=== PATIENT | female | born 1985 | race Caucasian/White ===

== ENCOUNTER 2020-06-21 04:10 | Inpatient (IN) | payer OTHER, SELFPAY ==
[~2020-06-21] VITALS: Ht 154.9 cm; Wt 90.7 kg
[2020-06-21] MEDS ORDERED: LR 1,000 ML IV SCH ×2 (04:30→05:00)
[2020-06-21] MEDS ORDERED: OXYTOCIN/0.9 % SODIUM CHLORIDE 1,000 ML IV SCH ×3 (04:30→14:15)
[2020-06-21] MEDS ORDERED: NALBUPHINE HCL 10 MG/ML AMP IM PRN (04:30)
[2020-06-21] MEDS ORDERED: AMPICILLIN SODIUM 2 GM in NS 100 ML IV ONE (04:30)
[2020-06-21 04:38] VITALS: BP_SYST 118
[2020-06-21] MEDS ORDERED: OXYTOCIN/0.9 % SODIUM CHLORIDE 1,000 ML IV ONE (04:45)
[2020-06-21] MEDS ORDERED: AMPICILLIN SODIUM 2 GM VIAL ONE (04:48)
[2020-06-21] MEDS ORDERED: LR 1,000 ML IV ONE ×2 (05:00)
[2020-06-21 05:36] LABS: BASOPHILS % (AUTO) 0.5 % (0.0-2.0); EOSINOPHILS # (AUTO) 0.1 K/uL (0.0-0.4); EOSINOPHILS % (AUTO) 0.7 % (0.0-4.0); HEMATOCRIT 28.3 % (36-48); HEMOGLOBIN 9.1 g/dL (12.0-16.0); LYMPHOCYTES # (AUTO) 2.2 K/uL (1.0-5.5); LYMPHOCYTES % (AUTO) 19.8 % (20.5-51.5); MEAN CORPUSCULAR HEMOGLOBIN 23 pg (27-31); MEAN CORPUSCULAR HGB CONC 32 % (32-36); MEAN CORPUSCULAR VOLUME 72 fL (79.0-98.0); MONOCYTES # (AUTO) 0.7 K/uL (0.0-1.0); MONOCYTES % (AUTO) 6.4 % (1.7-9.3); NEUTROPHILS # (AUTO) 7.9 K/uL (1.8-7.7); NEUTROPHILS % (AUTO) 72.6 % (40.0-70.0); PLATELET COUNT (AUTO) 268 K/uL (130-430); RED BLOOD CELL COUNT(AUTO) 3.91 MIL/uL (4.2-6.2); RED CELL DISTRIBUTION WIDTH 15.4 % (9.0-15.0); WHITE BLOOD COUNT (AUTO) 10.9 K/uL (4.8-10.8)
[2020-06-21] MEDS ORDERED: OXYCODONE/ACETAMINOPHEN 5-325 TABLET PO PRN (07:45)
[2020-06-21] MEDS ORDERED: HYDROcodone/ACETAMIN 5-325 MG TAB (NORCO/ VICODIN) PO PRN (07:45)
[2020-06-21] MEDS ORDERED: AMPICILLIN SODIUM 1 GM VIAL ONE (07:51)
[2020-06-21] MEDS ORDERED: OXYTOCIN 10 UNIT/ML VIAL ONE (08:06)
[2020-06-21] MEDS ORDERED: OXYTOCIN 10 UNIT/ML VIAL IM ONE (08:15)
[2020-06-21] MEDS ORDERED: AMPICILLIN SODIUM 1 GM in NS 50 ML IV SCH (08:30)
[2020-06-21] MEDS ORDERED: WITCH HAZEL LEAF 1 MED.PAD MED.PAD TP ONE (10:58)
[2020-06-21] MEDS: IBUPROFEN 600 MG TABLET PO SCH ×2 (12:03→18:10)
[2020-06-21] MEDS ORDERED: SENNOSIDES/DOCUSATE SODIUM 1 TAB TABLET(SENOKOT-S) PO PRN (14:15)
[2020-06-21] MEDS ORDERED: DOCUSATE SODIUM 100 MG CAPSULE PO PRN (14:15)
[2020-06-21] MEDS ORDERED: LANOLIN 7 GM OINT. TP PRN (14:15)
[2020-06-22] MEDS: IBUPROFEN 600 MG TABLET PO SCH ×3 (00:11→12:05)
[2020-06-22 07:10] LABS: BASOPHILS % (AUTO) 0.4 % (0.0-2.0); EOSINOPHILS # (AUTO) 0.1 K/uL (0.0-0.4); EOSINOPHILS % (AUTO) 1.3 % (0.0-4.0); HEMATOCRIT 24.3 % (36-48); HEMOGLOBIN 7.9 g/dL (12.0-16.0); LYMPHOCYTES # (AUTO) 2.4 K/uL (1.0-5.5); LYMPHOCYTES % (AUTO) 23.4 % (20.5-51.5); MEAN CORPUSCULAR HEMOGLOBIN 24 pg (27-31); MEAN CORPUSCULAR HGB CONC 33 % (32-36); MEAN CORPUSCULAR VOLUME 73 fL (79.0-98.0); MONOCYTES # (AUTO) 0.6 K/uL (0.0-1.0); MONOCYTES % (AUTO) 5.5 % (1.7-9.3); PLATELET COUNT (AUTO) 242 K/uL (130-430); RED BLOOD CELL COUNT(AUTO) 3.34 MIL/uL (4.2-6.2); RED CELL DISTRIBUTION WIDTH 15.6 % (9.0-15.0); WHITE BLOOD COUNT (AUTO) 10.1 K/uL (4.8-10.8)
[2020-06-22 08:13] LABS: NEUTROPHILS % (AUTO) 69.4 % (40.0-70.0)
[2020-06-22] MEDS ORDERED: LIDOCAINE PF 1% 30ML(POUR BTL) INJ ONE (08:33)
[2020-06-22] MEDS ORDERED: DIPH-TET-PERTUS Vaccine 0.5 ML VIAL (ADACEL) I.M. ONE (12:30)
== END 2020-06-22 14:20 | disposition home or self-care (01) | DRG 560 ==
LOC: SPU 04:10
PROVIDERS: ADMIT Obstetrics & Gynecology; ATTEND Obstetrics & Gynecology
PROC: 10E0XZZ Delivery of Products of Conception, External Approach (ICD-10-PCS; principal; 2020-06-21)
DX: O99.824 Streptococcus B carrier state complicating childbirth (principal); O24.424 Gestational diabetes mellitus in childbirth, insulin controlled; Z20.822 Contact with and (suspected) exposure to COVID-19; Z37.0 Single live birth; Z3A.39 39 weeks gestation of pregnancy
CPT/HCPCS: 36415; 81002; 82947; 82962; 85025; 86592; 86886; 86900; 86901; J0290; J2001; J2300; J2590; J7120

== ENCOUNTER 2021-06-04 06:15 | Inpatient (IN) | payer OTHER ==
[~2021-06-04] VITALS: Ht 154.9 cm; Wt 94.8 kg
[2021-06-04] MEDS ORDERED: OXYTOCIN/0.9 % SODIUM CHLORIDE 1,000 ML IV ONE ×2 (06:29→08:00)
[2021-06-04] MEDS ORDERED: AMPICILLIN SODIUM 2 GM VIAL ONE (06:32)
[2021-06-04] MEDS ORDERED: OXYTOCIN/0.9 % SODIUM CHLORIDE 1,000 ML IV SCH (07:00)
[2021-06-04] MEDS ORDERED: CLINDAMYCIN 900 mg/50mL D5W 50 ML IV SCH (07:00)
[2021-06-04] MEDS ORDERED: LR 500 ML IV ONE (07:00)
[2021-06-04] MEDS ORDERED: TERBUTALINE SULFATE 1 MG/ML VIAL SUBCUT ONE (07:00)
[2021-06-04] MEDS ORDERED: LR 1,000 ML IV SCH (07:00)
[2021-06-04] MEDS ORDERED: AMPICILLIN SODIUM 2 GM in NS 100 ML IV ONE (07:00)
[2021-06-04] MEDS ORDERED: LR 1,000 ML IV ONE (07:00)
[2021-06-04] MEDS ORDERED: METHYLERGONOVINE MALEATE 0.2 MG/ML AMP IM ONE (07:20)
[2021-06-04] MEDS ORDERED: METHYLERGONOVINE MALEATE 0.2 MG/ML AMP ONE (07:22)
[2021-06-04] MEDS ORDERED: OXYCODONE/ACETAMINOPHEN 5-325 TABLET PO PRN ×2 (08:00)
[2021-06-04] MEDS ORDERED: NALOXONE HCL 0.4 MG/ML AMP (NARCAN) IVP PRN (08:00)
[2021-06-04] MEDS ORDERED: DIPH-TET-PERTUS Vaccine 0.5 ML VIAL (ADACEL) I.M. PRN (08:00)
[2021-06-04] MEDS ORDERED: HYDROcodone/ACETAMIN 5-325 MG TAB (NORCO/ VICODIN) PO PRN (08:00)
[2021-06-04 08:05] LABS: BASOPHILS % (AUTO) 0.2 % (0.0-2.0); EOSINOPHILS % (AUTO) 0.1 % (0.0-4.0); HEMATOCRIT 26.2 % (36-48); HEMOGLOBIN 8.2 g/dL (12.0-16.0); LYMPHOCYTES # (AUTO) 0.9 K/uL (1.0-5.5); LYMPHOCYTES % (AUTO) 8.2 % (20.5-51.5); MEAN CORPUSCULAR HEMOGLOBIN 21 pg (27-31); MEAN CORPUSCULAR HGB CONC 32 % (32-36); MEAN CORPUSCULAR VOLUME 68 fL (79.0-98.0); MONOCYTES # (AUTO) 0.5 K/uL (0.0-1.0); MONOCYTES % (AUTO) 4.7 % (1.7-9.3); NEUTROPHILS # (AUTO) 9.2 K/uL (1.8-7.7); NEUTROPHILS % (AUTO) 86.8 % (40.0-70.0); PLATELET COUNT (AUTO) 267 K/uL (130-430); RED BLOOD CELL COUNT(AUTO) 3.85 MIL/uL (4.2-6.2); WHITE BLOOD COUNT (AUTO) 10.6 K/uL (4.8-10.8)
[2021-06-04] MEDS: IBUPROFEN 600 MG TABLET PO SCH ×2 (08:50→15:16)
[2021-06-04] MEDS ORDERED: DOCUSATE SODIUM 100 MG CAPSULE PO SCH (09:00)
[2021-06-04] MEDS ORDERED: AMPICILLIN SODIUM 1 GM in NS 50 ML IV SCH (11:00)
[2021-06-04] MEDS ORDERED: INSULIN REGULAR, HUMAN 100 UNITS/ML, 10 ML VIAL (humuLIN R) SUBCUT PRN (12:00)
[2021-06-04] MEDS ORDERED: SIMETHICONE 80 MG TAB.CHEW PO PRN (15:00)
[2021-06-04] MEDS: FERROUS SULFATE 325 MG TABLET.DR PO SCH (15:15)
[2021-06-04 17:26] VITALS: BP_SYST 132
[2021-06-04] MEDS ORDERED: TEMAZEPAM 15 MG CAPSULE PO PRN (21:00)
[2021-06-05] MEDS: IBUPROFEN 600 MG TABLET PO SCH ×3 (00:12→18:24)
[2021-06-05] MEDS: FERROUS SULFATE 325 MG TABLET.DR PO SCH ×3 (00:12→16:04)
[2021-06-05 07:04] LABS: HEMATOCRIT 25.1 % (36-48); HEMOGLOBIN 7.7 g/dL (12.0-16.0)
[2021-06-05] MEDS ORDERED: LR 1,000 ML IV ONE (13:00)
[2021-06-05] MEDS ORDERED: CEFAZOLIN 2 GM IVPB PREMIX 50 ML IV ONE (14:00)
[2021-06-05] MEDS ORDERED: DESFLURANE 15 MIN GAS INH ONE (14:07)
[2021-06-05] MEDS ORDERED: KETOROLAC TROMETHAMINE 30 MG VIAL ONE (14:07)
[2021-06-05] MEDS ORDERED: NS IRRIG SOLN 1000 ML IR ONE (14:07)
[2021-06-05] MEDS ORDERED: fentaNYL CITRATE/PF 100 MCG/2 ML AMP ONE (14:07)
[2021-06-05] MEDS ORDERED: PROPOFOL 200MG/ 20ML VIAL (DIPRIVAN) IV ONE (14:07)
[2021-06-05] MEDS ORDERED: LR 1,000 ML IV.SOLN IV ONE (14:07)
[2021-06-05] MEDS ORDERED: DEXAMETHASONE SOD PHOSPHATE 4 MG/ML VIAL ONE (14:07)
[2021-06-05] MEDS ORDERED: HYDROmorphone 2 MG/ML VIAL ONE (14:07)
[2021-06-05] MEDS ORDERED: ONDANSETRON HCL 4 MG/2 ML VIAL ONE (14:07)
[2021-06-05] MEDS ORDERED: METOCLOPRAMIDE HCL 10 MG/2 ML VIAL IVP PRN (14:30)
[2021-06-05] MEDS ORDERED: HYDROmorphone 1 MG/ML INJ. CARTRIDGE IVP PRN (14:30)
[2021-06-05] MEDS ORDERED: NALOXONE HCL 0.4 MG/ML AMP (NARCAN) IVP PRN (14:30)
[2021-06-05 15:36] VITALS: BP_SYST 120
[2021-06-06] MEDS: IBUPROFEN 600 MG TABLET PO SCH ×2 (00:48→06:14)
[2021-06-09 21:06] LABS: FTA-Ab (T PALLIDUM) Non Reactive (Non Reactive)
== END 2021-06-06 11:10 | disposition home or self-care (01) | DRG 541 ==
LOC: SPU 06:15
PROVIDERS: ADMIT Obstetrics & Gynecology; ATTEND Obstetrics & Gynecology
PROC: 10E0XZZ Delivery of Products of Conception, External Approach (ICD-10-PCS; principal; 2021-06-04)
PROC: 0UB60ZZ Excision of Left Fallopian Tube, Open Approach (ICD-10-PCS; 2021-06-05)
DX: O24.424 Gestational diabetes mellitus in childbirth, insulin controlled (principal); Z37.0 Single live birth; O69.81X0 Labor and delivery complicated by cord around neck, without compression, not applicable or unspecified; O99.824 Streptococcus B carrier state complicating childbirth; Z20.822 Contact with and (suspected) exposure to COVID-19; Z3A.39 39 weeks gestation of pregnancy; Z30.2 Encounter for sterilization
CPT/HCPCS: 36415; 82948; 82962; 85018; 85025; 86592; 86780; 86886; 86900; 86901; 88302; J0290; J0690; J1100; J1170; J1885; J2210; J2405; J2590; J2704; J3010; J7120